=== PATIENT | male | born 1955 | race Caucasian/White ===

== ENCOUNTER 2019-04-18 06:17 | Inpatient (IN) | payer OTHER ==
[2019-04-15 11:04] VITALS: BMI 29.1
[2019-04-18 08:19] LABS: Mean Corpuscular HGB CONC 34.6 g/dL (32.0-36.0); Mean Corpuscular Hemoglobin 32.4 pg (27.0-31.0); Mean Corpuscular Volume 93.5 fL (78.0-98.0); Mean Platelet Volume 6.7 fL (7.4-10.4); Platelet Count 191 thou/uL (130-400); RBC Distribution Width 11.4 % (11.5-14.5); Red Blood Cell (RBC) Count 4.63 mill/uL (4.70-6.10)
[2019-04-18] MEDS ORDERED: Sodium Chloride 0.9% 10 ML ONE (08:43)
[2019-04-18 08:45] LABS: Anion Gap 13 mmol/L (10-20); BUN (Urea Nitrogen) 17 mg/dL (8.4-25.7); Calc. Creatinine Clearance 117 mL/min (70-130); Calcium 9.5 mg/dL (7.8-10.44); Carbon Dioxide 24 mmol/L (23-31); Chloride 105 mmol/L (98-107); Estimated GFR-MDRD Greater than 90; Glucose 171 mg/dL (80-115); Sodium 138 mmol/L (136-145)
[2019-04-18] MEDS ORDERED: Fentanyl 100 MCG/2 ML VIAL ONE ×2 (09:13→10:55)
--- NOTE | 2019-04-18 10:43 | OP ---
DATE OF PROCEDURE: 04/18/2019 AWNING CRAFTSMAN: Puneet. PROCEDURE PERFORMED: L4-L5 laminectomy, posterolateral arthrodesis, pedicle screw instrumentation, demineralized bone matrix, local morselized autograft L4-L5. DESCRIPTION OF PROCEDURE: The patient was brought to the operating room and intubated. He was rolled in a prone position on gel-filled chest rolls. An incision was made exposing L4 and L5 and level was confirmed by x-ray. We performed complete L5 and inferior L4 laminectomy, completely decompressing the L4-L5 interspace. After complete decompression had been achieved, we placed pedicle screws at right L4 and right L5 using lateral fluoroscopic guidance. The tawana was secured between the screws, connected by nuts, which were final tightened. The wound was then extensively irrigated and MAC hemostasis was secured. A combination of demineralized bone matrix and local morselized autograft was laid over the left lamina and posterolateral surfaces for the purpose of arthrodesis. Vancomycin powder was applied, and the wound was then closed in anatomic layers. Job ID: [id number]
[2019-04-18] MEDS ORDERED: HYDROmorphone 2 MG/ML VIAL ONE (10:44)
[2019-04-18] MEDS ORDERED: Ondansetron PF 4 MG/2 ML Vial ONE ×2 (12:29→15:49)
[2019-04-18] MEDS ORDERED: PROPOFOL 200 MG/20 ML VIAL ONE (15:49)
[2019-04-18] MEDS ORDERED: Dexamethasone 20 MG/5 ML VIAL ONE (15:49)
[2019-04-18] MEDS ORDERED: PHENYLEPHRINE-NS 100 MCG/ML 10 ML SYRINGE ONE (15:49)
[2019-04-18] MEDS ORDERED: Rocuronium Bromide 10 MG/ML (10ML VIAL) ONE (15:49)
[2019-04-18] MEDS ORDERED: Glycopyrrolate 0.2 MG/ML 5 ML SYRINGE ONE (15:49)
[2019-04-18] MEDS ORDERED: Lidocaine 1% PF 5 ML VIAL ONE (15:49)
== END 2019-04-18 14:55 | disposition home or self-care (01) | DRG 460 ==
LOC: SURG A 06:17 → EDSTATUS 09:06
PROVIDERS: ADMIT Neurological Surgery; ATTEND Neurological Surgery
PROC: 0SG0071 Fusion of Lumbar Vertebral Joint with Autologous Tissue Substitute, Posterior Approach, Posterior Column, Open Approach (ICD-10-PCS; principal; 2019-04-18)
DX: M48.062 Spinal stenosis, lumbar region with neurogenic claudication (principal); M43.16 Spondylolisthesis, lumbar region; I10 Essential (primary) hypertension; E78.5 Hyperlipidemia, unspecified; I25.10 Atherosclerotic heart disease of native coronary artery without angina pectoris; J44.9 Chronic obstructive pulmonary disease, unspecified; E11.40 Type 2 diabetes mellitus with diabetic neuropathy, unspecified; Z79.899 Other long term (current) drug therapy; Z79.82 Long term (current) use of aspirin; Z87.891 Personal history of nicotine dependence; Z95.1 Presence of aortocoronary bypass graft; Z79.84 Long term (current) use of oral hypoglycemic drugs
CPT/HCPCS: 76000; 80048; 85027; 93005; 93010; C1713; C1768; J0690; J1100; J1170; J2001; J2405; J2704; J3010; J3370; J3490

== ENCOUNTER 2019-05-04 09:49 | Outpatient (CLI) | payer OTHER ==
--- NOTE | 2019-05-04 10:29 | RAD ---
RADIOGRAPH LUMBAR SPINE 2 VIEWS: DATE: 05/04/2019 HISTORY: 64-year-old male with "M 43.16 spondylolisthesis of lumbar region" Low back pain COMPARISON: None FINDINGS: There are 5 lumbar-type vertebrae. No scoliosis. Midline laminectomy defects at L4-5 and L5-S1. Facet DJD bilaterally at L4-5 and L5-S1. Unilateral right pedicle screws at L4 and L5. Mild grade 1 anterolisthesis of L4 on L5. Mild disc space narrowing at L4-5. The rest of the disc spaces are maint ained. Vertebral body heights are maintained. IMPRESSION: 1. Unilateral right pedicle screws stabilizing a mild grade 1 spondylolisthesis at L4-5. 2. Status post midline laminectomies at L4-5 and L5-S1. 3. Facet osteoarthrosis at lower levels.
== END 2019-05-04 09:50 | disposition home or self-care (01) ==
LOC: TBSIIMAG 09:49
PROVIDERS: ATTEND Neurological Surgery
DX: M43.16 Spondylolisthesis, lumbar region (principal); M47.816 Spondylosis without myelopathy or radiculopathy, lumbar region
CPT/HCPCS: 72100

== ENCOUNTER 2019-06-21 13:33 | Outpatient (CLI) | payer OTHER ==
--- NOTE | 2019-06-21 13:52 | RAD ---
LUMBAR SPINE 2 VIEWS: Date: 06/21/19 HISTORY: Lumbar stenosis. COMPARISON: 05/04/19. FINDINGS: Pedicle screws on the right transfix L4-5. Slight anterolisthesis at this level appears stable. Mild degenerative spurring. Mild facet hypertrophy. Disc spaces are maintained. No change from prior exam. IMPRESSION: Stable findings. POS: OFF
== END 2019-06-21 13:34 | disposition home or self-care (01) ==
LOC: TBSIIMAG 13:33
PROVIDERS: ATTEND Neurological Surgery
DX: M48.062 Spinal stenosis, lumbar region with neurogenic claudication (principal)
CPT/HCPCS: 72100